=== PATIENT | female | born 1965 | race Caucasian/White ===

== ENCOUNTER 2019-06-23 17:17 | Emergency (ER) | payer MEDICAID ==
[~2019-06-23] VITALS: Ht 147.3 cm; Wt 67.6 kg
[2019-06-23 17:19] VITALS: BP 115/62
--- NOTE | 2019-06-23 17:31 | NUR ---
PATIENT AMBULATED TO BED 4.
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
[2019-06-23] MEDS ORDERED: KETOROLAC 60 MG/2 ML VIAL IM ONE (18:00)
[2019-06-23 18:49] VITALS: BP 111/63
--- NOTE | 2019-06-23 18:50 | NUR ---
Patient discharged with v/s stable. Written and verbal after care instructions given and explained. Patient alert, oriented and verbalized understanding of instructions. Ambulatory with steady gait. All questions addressed prior to discharge. ID band removed. Patient advised to follow up with PMD. Rx of IBU, TRAMADOL given. Patient educated on indication of medication including possible reaction and side effects. Opportunity to ask questions provided and answered.
== END 2019-06-23 18:50 | disposition home or self-care (01) ==
LOC: MED 17:17
DX: S06.0X9A Concussion with loss of consciousness of unspecified duration, initial encounter (principal); Y04.2XXA Assault by strike against or bumped into by another person, initial encounter; Y93.89 Activity, other specified; Y92.89 Other specified places as the place of occurrence of the external cause; Y99.8 Other external cause status
CPT/HCPCS: 96372; 99283; J1885

== ENCOUNTER 2021-01-31 12:44 | Emergency (ER) | payer MEDICAID ==
[~2021-01-31] VITALS: Ht 149.9 cm; Wt 64.1 kg
[2021-01-31 12:58] VITALS: BP 116/57
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
--- NOTE | 2021-01-31 13:16 | NUR ---
DR NESS AT BEDSIDE EXAMINING PT
[2021-01-31] MEDS ORDERED: KEN.5O TP (13:32)
[2021-01-31 13:45] VITALS: BP 116/57
--- NOTE | 2021-01-31 13:45 | NUR ---
Patient discharged with v/s stable. Written and verbal after care instructions given and explained. Patient alert, oriented and verbalized understanding of instructions. Ambulatory with steady gait. All questions addressed prior to discharge. ID band removed. Patient advised to follow up with PMD. Rx of TRIAMCINOLONE ACETONIDE given. Patient educated on indication of medication including possible reaction and side effects. Opportunity to ask questions provided and answered.
== END 2021-01-31 13:45 | disposition home or self-care (01) ==
LOC: MED 12:44
DX: L42 Pityriasis rosea (principal); M25.512 Pain in left shoulder
CPT/HCPCS: 99283